=== PATIENT | female | born 1990 | race Caucasian/White ===

== ENCOUNTER 2017-05-04 15:02 | Emergency (ER) | payer OTHER ==
[2017-05-04] MEDS ORDERED: Acetaminophen 500 MG TAB ONE (15:24)
--- NOTE | 2017-05-04 16:07 | RAD ---
FRONTAL RADIOGRAPH CHEST PORTABLE UPRIGHT: Date: 05-04-17 History: Dizziness, cough, headache, fever. FINDINGS: Heart and mediastinal contours are unremarkable. No focal consolidation or alveolar edema. IMPRESSION: No acute findings. POS: [facility]
[2017-05-04 16:27] LABS: Hematocrit 42.4 % (36.0-47.0); Mean Platelet Volume 7.1 fL (7.4-10.4); Red Blood Cell (RBC) Count 4.82 mill/uL (4.20-5.40); White Blood Cell (WBC) Count 20.3 thou/uL (4.8-10.8)
[2017-05-04 16:41] LABS: ALT (SGPT) 12 U/L (8-55); AST (SGOT) 11 U/L (5-34); Alkaline Phosphatase 63 U/L (40-150); Anion Gap 17 mmol/L (10-20); BUN (Urea Nitrogen) 12 mg/dL (7.0-18.7); Bilirubin, Total 1.2 mg/dL (0.2-1.2); Calc. Creatinine Clearance 0 mL/min (70-130); Calcium 9.2 mg/dL (7.8-10.44); Carbon Dioxide 17 mmol/L (22-29); Chloride 102 mmol/L (98-107); Estimated GFR-MDRD 65; Globulin 3.6 g/dL (2.4-3.5); Protein, Total 7.4 g/dL (6.0-8.3)
[2017-05-04 16:48] LABS: Band 12 % (5-11); Neutrophil 75 % (42-75)
[2017-05-04 17:12] LABS: Bilirubin Negative (Negative); Blood, Urine Moderate (Negative); Glucose, Urine (Dipstick) Negative (Negative); Ketone, Urine Negative (Negative); Nitrite Positive (Negative); Protein, Urine (Dipstick) Negative (Neg-Trace); Urobilinogen 0.2 mg/dL (0.2-1.0)
[2017-05-04 18:13] LABS: Lactic Acid - Sepsis 1.4 mmol/L (0.5-2.2)
== END 2017-05-04 18:16 | disposition home or self-care (01) ==
LOC: ERS 15:02
DX: N39.0 Urinary tract infection, site not specified (principal); R51 Headache; R42 Dizziness and giddiness; R05 Cough
CPT/HCPCS: 36415; 51701; 71010; 80053; 81003; 81015; 81025; 83605; 85025; 87077; 87086; 87186; 96361; 96374; J0696

== ENCOUNTER 2017-05-17 12:48 | Emergency (ER) | payer OTHER ==
[2017-05-17] MEDS ORDERED: Acetaminophen 500 MG TAB ONE (13:46)
[2017-05-17 13:54] LABS: Bilirubin Small (Negative); Blood, Urine Small (Negative); Glucose, Urine (Dipstick) Negative (Negative); Ketone, Urine Trace mg/dL (Negative); Nitrite Positive (Negative); Protein, Urine (Dipstick) 300 mg/dL (Neg-Trace)
[2017-05-17 13:58] LABS: Bacteria/HPF 4+ HPF (None Seen); Hyaline Casts/LPF 4-6 HYALINE CAST LPF (0-3 Hyaline); Squamous Epithelial 0-3 HPF (0-3)
[2017-05-17 14:05] LABS: Yeast-All Forms None Seen HPF (None Seen)
[2017-05-17 14:07] LABS: #Lymphocytes 1.5 thou/uL (1.20-3.40); #Monocytes 1.2 thou/uL (0.11-0.59); #Neutrophils 13.3 thou/uL (1.40-6.50); %Basophils 0.2 % (0.0-1.0); %Eosinophils 0.3 % (0.0-10.0); %Lymphocytes 9.4 % (21.0-51.0); %Monocytes 7.5 % (0.0-10.0); Hematocrit 40.1 % (36.0-47.0); Mean Platelet Volume 6.6 fL (7.4-10.4); White Blood Cell (WBC) Count 16.1 thou/uL (4.8-10.8)
[2017-05-17 14:24] LABS: Lactic Acid - Sepsis 1.2 mmol/L (0.5-2.2)
[2017-05-17 14:27] LABS: ALT (SGPT) 16 U/L (8-55); AST (SGOT) 13 U/L (5-34); Alkaline Phosphatase 84 U/L (40-150); Anion Gap 16 mmol/L (10-20); BUN (Urea Nitrogen) 19 mg/dL (7.0-18.7); Bilirubin, Total 0.9 mg/dL (0.2-1.2); Calc. Creatinine Clearance 0 mL/min (70-130); Calcium 10.6 mg/dL (7.8-10.44); Carbon Dioxide 24 mmol/L (22-29); Chloride 100 mmol/L (98-107); Estimated GFR-MDRD 62; Globulin 4.6 g/dL (2.4-3.5); Protein, Total 8.5 g/dL (6.0-8.3)
[2017-05-17] MEDS ORDERED: cefTRIAXone\\ROCEPHIN 2 GM in Sodium Chloride 0.9% 100 ML IVPB SCH (14:30)
[2017-05-17] MEDS ORDERED: Morphine 4 MG/ML VIAL ONE (15:15)
[2017-05-17] MEDS ORDERED: Ketorolac Tromethamine 30 MG/ML VIAL ONE (16:08)
== END 2017-05-17 17:38 | disposition home or self-care (01) ==
LOC: ERS 12:48
DX: N12 Tubulo-interstitial nephritis, not specified as acute or chronic (principal); Z79.899 Other long term (current) drug therapy
CPT/HCPCS: 36415; 80053; 81003; 81015; 81025; 83605; 85025; 87040; 87077; 87086; 87186; 96361; 96365; 96375; J0696; J1885; J2270; J7050

== ENCOUNTER 2017-08-08 14:26 | Observation (INO) | payer OTHER, SELFPAY ==
[~2017-08-08 14:26] MED LIST: Dexamethasone 20 MG/5 ML VIAL ONE; Lidocaine 1% PF 5 ML VIAL ONE; Ondansetron HCl/PF 4 MG/2 ML Vial ONE; Propofol 200 MG/20 ML VIAL ONE
[2017-08-08] MEDS ORDERED: Ibuprofen 800 MG TAB ONE (15:01)
[2017-08-08 15:11] LABS: Bilirubin Small (Negative); Blood, Urine Moderate (Negative); Clarity CLOUDY (Clear); Glucose, Urine (Dipstick) Negative (Negative); Leukocyte Moderate (Negative); Nitrite Negative (Negative); Protein, Urine (Dipstick) 100 mg/dL (Neg-Trace)
[2017-08-08 15:13] LABS: Bacteria/HPF 1+ HPF (None Seen); Hyaline Casts/LPF 7-10 HYALINE CAST LPF (0-3 Hyaline); Pathc Cast-AUWi Flag 0.54 (0-2.49); Squamous Epithelial 0-3 HPF (0-3)
[2017-08-08 15:53] LABS: #Basophils 0.1 thou/uL (0.0-0.2); #Lymphocytes 1.9 thou/uL (1.20-3.40); #Monocytes 0.8 thou/uL (0.11-0.59); #Neutrophils 9.1 thou/uL (1.40-6.50); %Basophils 0.6 % (0.0-1.0); %Eosinophils 0.2 % (0.0-10.0); %Lymphocytes 16.1 % (21.0-51.0); %Monocytes 6.8 % (0.0-10.0); %Neutrophils 76.3 % (42.0-75.0); Hemoglobin 14.5 g/dL (12.0-16.0); Mean Corpuscular HGB CONC 32.1 g/dL (32.0-36.0); Mean Corpuscular Hemoglobin 28.2 pg (27.0-31.0); Mean Corpuscular Volume 87.8 fl (81.0-99.0); Mean Platelet Volume 6.6 fL (7.4-10.4); Platelet Count 412 thou/uL (130-400); RBC Distribution Width 12.2 % (11.5-14.5); Red Blood Cell (RBC) Count 5.14 mill/uL (4.20-5.40)
[2017-08-08 16:04] LABS: BHCG - Serum Negative (NEGATIVE); Pregs Control Background? CLEAR/WHITE (CLR/WHITE); Pregs Control Bar Appear? YES (CONTROL BAR)
--- NOTE | 2017-08-08 16:06 | RAD ---
CHEST ONE VIEW: 08/08/17 HISTORY: Fever. COMPARISON: 05/04/17. FINDINGS: The cardiac silhouette is magnified by projection. Pulmonary vasculature is unremarkable. Mediastinum is midline. There is no lobar consolidation or evidence of pneumothorax. IMPRESSION: No active cardiopulmonary abnormalities are demonstrated. POS: [facility]
[2017-08-08 16:18] LABS: ALT (SGPT) 12 U/L (8-55); AST (SGOT) 12 U/L (5-34); Alkaline Phosphatase 71 U/L (40-150); Anion Gap 18 mmol/L (10-20); BUN (Urea Nitrogen) 9 mg/dL (7.0-18.7); Bilirubin, Total 0.6 mg/dL (0.2-1.2); Calc. Creatinine Clearance 0 mL/min (70-130); Calcium 10.1 mg/dL (7.8-10.44); Carbon Dioxide 19 mmol/L (22-29); Chloride 100 mmol/L (98-107); Estimated GFR-MDRD 87; Globulin 5.2 g/dL (2.4-3.5); Glucose 108 mg/dL (70-105); Potassium 3.7 mmol/L (3.5-5.1); Protein, Total 9.2 g/dL (6.0-8.3); Sodium 133 mmol/L (136-145)
--- NOTE | 2017-08-08 16:55 | CT ---
CT OF ABDOMEN NONCONTRAST 08/08/17 COMPARISON: 11/11/13 CLINICAL HISTORY: Back pain, gradual onset. FINDINGS: There is nonobstructive right nephrolithiasis. There is a urinary tract calculus at the proximal left ureter measuring 7 mm with mild left obstructive uropathy. The urinary bladder is decompressed. Ther e are hypodensities at each adnexa likely related to physiologic cyst formation. The solid abdominal organs, bowel, lymph nodes, vasculature, are limited in assessment by noncontrast technique. There is evidence of prior cholecystectomy. There is mild low attenuation of the hepatic parenchyma suggestiv e of fatty infiltration. Correlate with liver function enzymes. No consolidation or effusion at the imaged lung bases. Osseous structures reveal no acute findings. Postsurgical change at the lumbosacral region present. Comparing to 11/11/13 exam, prior right sided nephrostomy catheter has been removed. IMPRESSION: 1. Mildly obstructing proximal left ureteral calculus, measuring approximately 7 mm. Urology con sultation is warranted, given size of the calculus. 2. Nonobstructive right nephrolithiasis. POS: [facility]
[2017-08-08] MEDS ORDERED: Iothalamate Meglumine 60% 50 ML VIAL FS ONE (17:23)
[2017-08-08] MEDS ORDERED: HYDROmorphone 0.5 MG/0.5 ML SYRINGE ONE (17:29)
[2017-08-08] MEDS ORDERED: Fentanyl 100 MCG/2 ML VIAL ONE (17:29)
[2017-08-08] MEDS ORDERED: Promethazine HCl 25 MG/ML VIAL IM PRN ×2 (18:53→18:57)
[2017-08-08] MEDS ORDERED: Ondansetron HCl/PF 4 MG/2 ML Vial IVP PRN ×2 (18:53→18:57)
[2017-08-08] MEDS ORDERED: Promethazine HCl 25 MG/ML VIAL SLOW IVP PRN ×2 (18:53→18:57)
--- NOTE | 2017-08-08 18:54 | RAD ---
IVP RETROGRADE TWO FLUOROSCOPIC IMAGES 08/08/17 INDICATION: Obstructive uropathy, urolithiasis. FINDINGS: There is a left ureteral stent partially visualized which does traverse the patient's diagnosed proxi mal left ureteral calculus. IMPRESSION: Calcific density with partially imaged left ureteral catheter. POS: [facility]
[2017-08-08] MEDS ORDERED: HYDROmorphone 2 MG/ML VIAL SLOW IVP PRN (18:57)
--- NOTE | 2017-08-08 19:21 | OP ---
DATE: 08/08/2017 PREOPERATIVE DIAGNOSIS: Left ureteral stone and fever, urinary tract infection. POSTOPERATIVE DIAGNOSES: Left ureteral stone and fever, urinary tract infection. PROCEDURE: Cystoscopy and left double-J stent placement. SURGEON: Raheem Friedman MD ANESTHESIA: General. INDICATIONS: Ms. Bell is a 27-year-old female with a prior history of stone disease requiring a left-sided ureteroscopy, right-sided percutaneous nephrolithotripsy [place] [address] Tristan. She presents with a several day history of low grade fever and left-sided flank pain. CT imaging demonstrates a 7 mm left upper ureter stone. Urinalysis was consistent with urinary tract infection. She is being brought to the operating room for cystoscopy and left double-J stent placement. DETAILS OF PROCEDURE: The patient was given general anesthesia and IV antibiotics. She was sterilely prepped and draped in the lithotomy position. The cystoscope was passed into the bladder and bladder examined in its entirety. There were no mucosal abnormalities. Left ureteral orifice was intubated with a floppy tip guidewire, which was passed cephalad under fluoroscopic control. A 6 x 24 double-J stent was passed over the guidewire and coiled in the left renal pelvis into the bladder as determined fluoroscopically and cystoscopically. The stone was visible on plain field imaging and she would be a candidate for subsequent ESWL or ureteroscopy. COMPLICATIONS: None. ESTIMATED BLOOD LOSS: Minimal. She will be admitted for observation overnight because of risk of sepsis. [facility]PITALFerdinand
[2017-08-08] MEDS ORDERED: Ondansetron ODT 4 MG TAB PO PRN (20:13)
[2017-08-08] MEDS ORDERED: cefTRIAXone\\ROCEPHIN 1 GM in Sodium Chloride 0.9% 100 ML IVPB SCH (20:13)
[2017-08-08] MEDS ORDERED: Acetaminophen 325 MG TAB PO PRN (20:13)
[2017-08-08] MEDS ORDERED: Guaifenesin DM 100-10/5 ML UDCUP PO PRN (20:13)
[2017-08-08] MEDS: HYDROcodone/Acetaminophen 10/325 mg Tablet PO PRN (20:59)
[2017-08-08] MEDS: Famotidine 20 MG TAB PO SCH (20:59)
[2017-08-08] MEDS: Sodium Chloride 0.9% 1,000 ML IV SCH (22:22)
--- NOTE | 2017-08-09 00:18 | CON ---
DATE OF CONSULTATION: 08/08/2017 REASON FOR CONSULTATION: Left-sided flank pain and urinary tract infection. HISTORY OF PRESENT ILLNESS: Ms. Bell is a 27-year-old female, who presents with a 4-day history of low-grade fever. She did not improve and she started to develop progressively worsening left-sided flank pain. She was evaluated in the emergency room and found to have a 7 mm left upper ureteral stone. She also has approximately a 7 mm stone in the right kidney that is nonobstructive. She has a prior history of stone disease having undergone a left ureteroscopy with stone extraction with right percutaneous nephrolithotripsy [place] [address] Tristan PAST MEDICAL HISTORY: Kidney stones. PAST SURGICAL HISTORY: Back surgery x2, cholecystectomy, , left ureteroscopy and stone extraction, right percutaneous nephrolithotripsy, both in 2010. FAMILY HISTORY: Significant for lung cancer and skin cancer in her grandparents. SOCIAL HISTORY: She is a nonsmoker, denies excessive alcohol use. REVIEW OF SYSTEMS: Respiratory: No shortness of breath. Cardiovascular: No chest pain or palpitations. Gastrointestinal: Denies chronic constipation or diarrhea. PHYSICAL EXAMINATION: GENERAL: She is awake and alert. She is in no distress at this time. VITAL SIGNS: Temperature 100.1, pulse 92, respiratory rate 20, blood pressure 138/82. HEENT: Normocephalic, atraumatic. NECK: Supple, without masses. CHEST: Clear to auscultation. CARDIOVASCULAR: Regular rate and rhythm. No murmurs auscultated. ABDOMEN: Soft, nontender, no palpable masses. No peritoneal signs. NEUROLOGIC: Cranial nerves II through XII grossly intact. IMPRESSION: Ms. Bell is a 27-year-old female with a 7 mm left upper ureter stone with some proximal hydronephrosis. In addition, she has a right-sided kidney stone that is nonobstructive. From a laboratory standpoint, she has a white blood cell count of 12,000 with normal hemoglobin and hematocrit. Urine testing reveals white blood cells and red blood cells along with 1+ bacteria noted. Because of presumed infection and obstruction, I have recommended a cystoscopy and left double-J stent placement. The procedure, potential limitations, alternatives, and complications have been discussed with her. She does wish to proceed. PLAN: Cystoscopy, left double-J stent placement. [facility]
[2017-08-09 04:02] VITALS: BMI 44.6
[2017-08-09] MEDS: HYDROcodone/Acetaminophen 10/325 mg Tablet PO PRN ×2 (08:03→12:27)
[2017-08-09] MEDS: Famotidine 20 MG TAB PO SCH (08:04)
[2017-08-09] MEDS: Sodium Chloride 0.9% 1,000 ML IV SCH (08:10)
[2017-08-09 12:27] VITALS: BP 104/71; TEMP 97.7
--- NOTE | 2017-08-09 14:25 | DIS ---
DATE OF ADMISSION: 08/08/2017 DATE OF DISCHARGE: 08/09/2017 ADMISSION DIAGNOSES: Urinary tract infection, left ureteral stone. DISCHARGE DIAGNOSES: Urinary tract infection, left ureteral stone. HISTORY: Ms. Bell is a 27-year-old female who presented to the hospital with a subjective fever, a bnormal urinalysis and in the emergency room was noted to have a 7 mm left ureteral stone in the left upper ureter. HOSPITAL COURSE: She was admitted on 08/08/2017 and taken to the operating room and a left double-J stent was placed. She remained afebrile postoperatively. Urine culture preliminary is for E. coli. She was hemodynamically stable throughout her hospital course. DISCHARGE MEDICATIONS: Bactrim and Fyffe. FOLLOW UP: We will arrange for outpatient therapy for stone treatment by either ESWL or ureteroscopy in the near future.
[2017-08-09] MEDS ORDERED: cefTRIAXone\\ROCEPHIN 1 GM, Syringe 0.4 ML in Sterile Water 9.6 ML SLOW IVP SCH (17:00)
== END 2017-08-09 15:05 | disposition home or self-care (01) ==
LOC: ERS 14:26 → SURG B 17:41 → SDC 17:45 → SURG B 18:46
PROVIDERS: ADMIT Urology; ATTEND Urology
PROC: 0T778DZ Dilation of Left Ureter with Intraluminal Device, Via Natural or Artificial Opening Endoscopic (ICD-10-PCS; principal; 2017-08-09)
DX: N20.1 Calculus of ureter (principal); N39.0 Urinary tract infection, site not specified; Z79.2 Long term (current) use of antibiotics; Z98.891 History of uterine scar from previous surgery; Z90.49 Acquired absence of other specified parts of digestive tract; Z98.890 Other specified postprocedural states; Z87.442 Personal history of urinary calculi
CPT/HCPCS: 36415; 71045; 74018; 74176; 80053; 81003; 81015; 83605; 84703; 85025; 87040; 87077; 87086; 87186; 94760; 96361; 96374; A4216; C1758; C1769; G0378; J0696; J1100; J1170; J2001; J2405; J2704; J3010; Q9961

== ENCOUNTER 2017-08-24 07:30 | Day surgery (SDC) | payer SELFPAY ==
[2017-08-21 12:20] VITALS: BMI 42.5
[2017-08-24] MEDS ORDERED: Levofloxacin 500 mg/D5W 100 ml Premix Bag ONE (08:39)
[2017-08-24 08:58] LABS: BHCG - Serum Negative (NEGATIVE); Pregs Control Background? CLEAR/WHITE (CLR/WHITE); Pregs Control Bar Appear? YES (CONTROL BAR)
[2017-08-24] MEDS ORDERED: Midazolam HCl 2 mg/2 ml Vial ONE (09:35)
--- NOTE | 2017-08-24 11:12 | OP ---
DATE OF PROCEDURE: 08/24/2017 PREOPERATIVE DIAGNOSIS: Left ureteral stone. POSTOPERATIVE DIAGNOSIS: Left ureteral stone. PROCEDURE: ESWL, cystoscopy, stent removal. SURGEON: Dr. Raheem Friedman ANESTHESIA: General. INDICATIONS: Ms. Bell is a 27-year-old female who is status post left ureteral stent placement and antibiotic therapy for an 8 mm left upper ureter stone with bacterial urinary tract infection. She presents now for definitive management of the stone. She has elected to proceed with ESWL. DETAILS OF PROCEDURE: The patient was given general anesthesia and IV antibiotics. She was placed i n the supine position on the Dornier lithotripsy table. She was carefully positioned and the stone w as easily visible. The stone could be easily visualized in both the fluoroscopic planes. She receiv ed a total of 2500 shocks to the left ureteral stone and the stone looked completely fragmented. A m aximum power setting of 5. She was then sterilely prepped and the cystoscope was passed in the bladd er. Indwelling left ureteral stent was grasped and removed without difficulty. The patient tolerate d the procedure well. She was transferred from the operating room to recovery room in stable conditi on. COMPLICATIONS: None. ESTIMATED BLOOD LOSS: Minimal.
[2017-08-24] MEDS ORDERED: Lidocaine 1% PF 5 ML VIAL ONE (17:15)
[2017-08-24] MEDS ORDERED: Propofol 200 MG/20 ML VIAL ONE (17:15)
== END 2017-08-24 12:15 | disposition home or self-care (01) ==
LOC: SDC 07:30
PROVIDERS: ATTEND Urology
PROC: 0TF7XZZ Fragmentation in Left Ureter, External Approach (ICD-10-PCS; principal; 2017-08-24)
PROC: 0TP98DZ Removal of Intraluminal Device from Ureter, Via Natural or Artificial Opening Endoscopic (ICD-10-PCS; principal; 2017-08-24)
DX: N20.1 Calculus of ureter (principal); N39.0 Urinary tract infection, site not specified; B96.89 Other specified bacterial agents as the cause of diseases classified elsewhere; Z98.890 Other specified postprocedural states
CPT/HCPCS: 36415; 84703; J1956; J2001; J2175; J2250; J2704

== ENCOUNTER 2019-01-11 15:22 | Emergency (ER) | payer OTHER, SELFPAY ==
[2019-01-11 16:29] LABS: #Eosinphils 0.1 thou/uL (0.0-0.7); #Lymphocytes 2.3 thou/uL (1.20-3.40); #Monocytes 0.4 thou/uL (0.11-0.59); #Neutrophils 4.8 thou/uL (1.40-6.50); %Basophils 0.3 % (0.0-1.0); %Eosinophils 1.8 % (0.0-10.0); %Monocytes 4.7 % (0.0-10.0); %Neutrophils 63.2 % (42.0-75.0); Hemoglobin 13.2 g/dL (12.0-16.0); Mean Corpuscular HGB CONC 32.2 g/dL (32.0-36.0); Mean Corpuscular Hemoglobin 27.2 pg (27.0-31.0); Mean Corpuscular Volume 84.6 fL (78.0-98.0); Platelet Count 353 thou/uL (130-400); RBC Distribution Width 11.7 % (11.5-14.5); Red Blood Cell (RBC) Count 4.86 mill/uL (4.20-5.40); White Blood Cell (WBC) Count 7.7 thou/uL (4.8-10.8)
[2019-01-11 16:35] LABS: BHCG - Serum Negative (NEGATIVE); Pregs Control Background? CLEAR/WHITE (CLR/WHITE); Pregs Control Bar Appear? YES (CONTROL BAR)
[2019-01-11 16:50] LABS: ALT (SGPT) 10 U/L (8-55); AST (SGOT) 11 U/L (5-34); Albumin 4.1 g/dL (3.5-5.0); Alkaline Phosphatase 71 U/L (40-150); Anion Gap 13 mmol/L (10-20); BUN (Urea Nitrogen) 8 mg/dL (7.0-18.7); Bilirubin, Total 0.6 mg/dL (0.2-1.2); Calc. Creatinine Clearance 0 mL/min (70-130); Calcium 9.9 mg/dL (7.8-10.44); Carbon Dioxide 23 mmol/L (22-29); Chloride 104 mmol/L (98-107); Estimated GFR-MDRD 89; Globulin 3.5 g/dL (2.4-3.5); Glucose 95 mg/dL (70-105); Protein, Total 7.6 g/dL (6.0-8.3); Sodium 136 mmol/L (136-145)
--- NOTE | 2019-01-11 16:51 | RAD ---
XR Chest 1 View Portable History: Chest pain. Dizziness. Comparison: Radiograph July 2017 Findings: Lungs are clear. No pneumothorax. No effusion. No acute osseous abnormality. Cardiac silhouette and mediastinal contours are similar. Impression: No acute intrathoracic abnormality.
[2019-01-11 17:30] LABS: Bilirubin Negative (Negative); Blood, Urine Negative (Negative); Clarity Clear (Clear); Glucose, Urine (Dipstick) Normal (Negative); Leukocyte Negative Leu/uL (Negative); Nitrite 1+ (Negative); Protein, Urine (Dipstick) 20 mg/dL (Neg-Trace); Squamous Epithelial 0-3 HPF (0-3); Urobilinogen Normal mg/dL (Less than 2); WBC/HPF 0-3 HPF (0-3)
[2019-01-11 17:35] LABS: Bacteria/HPF 1+ HPF (None Seen)
== END 2019-01-11 18:05 | disposition home or self-care (01) ==
LOC: ERS 15:22
DX: R42 Dizziness and giddiness (principal); R07.89 Other chest pain; M54.5 Low back pain; Z79.899 Other long term (current) drug therapy
CPT/HCPCS: 36415; 71045; 80053; 81003; 81015; 84703; 85025; 93005

== ENCOUNTER 2019-03-02 16:11 | Emergency (ER) | payer SELFPAY ==
[2019-03-02] MEDS ORDERED: Fentanyl 100 MCG/2 ML VIAL ONE (16:44)
[2019-03-02] MEDS ORDERED: Ketorolac Tromethamine 30 MG/ML VIAL ONE (16:44)
[2019-03-02] MEDS ORDERED: Ondansetron PF 4 MG/2 ML Vial ONE ×2 (16:44→17:49)
[2019-03-02 16:54] LABS: #Basophils 0.1 thou/uL (0.0-0.2); #Eosinphils 0.2 thou/uL (0.0-0.7); #Lymphocytes 2.7 thou/uL (1.20-3.40); #Monocytes 0.4 thou/uL (0.11-0.59); #Neutrophils 4.9 thou/uL (1.40-6.50); %Basophils 0.7 % (0.0-1.0); %Eosinophils 2.2 % (0.0-10.0); %Lymphocytes 32.6 % (21.0-51.0); %Monocytes 5.1 % (0.0-10.0); %Neutrophils 59.4 % (42.0-75.0); Hemoglobin 14.1 g/dL (12.0-16.0); Mean Corpuscular HGB CONC 35.5 g/dL (32.0-36.0); Mean Corpuscular Hemoglobin 29.6 pg (27.0-31.0); Mean Corpuscular Volume 83.6 fL (78.0-98.0); Mean Platelet Volume 7.3 fL (7.4-10.4); Platelet Count 344 thou/uL (130-400); RBC Distribution Width 11.6 % (11.5-14.5); Red Blood Cell (RBC) Count 4.76 mill/uL (4.20-5.40); White Blood Cell (WBC) Count 8.2 thou/uL (4.8-10.8)
[2019-03-02 17:00] LABS: BHCG - Serum Negative (NEGATIVE); Pregs Control Background? CLEAR/WHITE (CLR/WHITE); Pregs Control Bar Appear? YES (CONTROL BAR)
[2019-03-02 17:03] LABS: Bacteria/HPF 1+ HPF (None Seen); Bilirubin Negative (Negative); Blood, Urine Negative (Negative); Clarity Clear (Clear); Glucose, Urine (Dipstick) Normal (Negative); Leukocyte 75 Leu/uL (Negative); Mucous/LPF 1+ LPF (<2+); Nitrite Negative (Negative); Protein, Urine (Dipstick) Negative (Neg-Trace); Urobilinogen Normal mg/dL (Less than 2)
[2019-03-02 17:23] LABS: ALT (SGPT) 22 U/L (8-55); AST (SGOT) 15 U/L (5-34); Albumin 4.1 g/dL (3.5-5.0); Alkaline Phosphatase 87 U/L (40-150); Anion Gap 13 mmol/L (10-20); BUN (Urea Nitrogen) 8 mg/dL (7.0-18.7); Bilirubin, Total 0.4 mg/dL (0.2-1.2); Calc. Creatinine Clearance 0 mL/min (70-130); Calcium 9.6 mg/dL (7.8-10.44); Carbon Dioxide 25 mmol/L (22-29); Chloride 104 mmol/L (98-107); Estimated GFR-MDRD 86; Globulin 3.1 g/dL (2.4-3.5); Glucose 120 mg/dL (70-105); Lipase 26 U/L (8-78); Potassium 3.7 mmol/L (3.5-5.1); Protein, Total 7.2 g/dL (6.0-8.3); Sodium 138 mmol/L (136-145)
--- NOTE | 2019-03-02 17:53 | CT ---
CT ABDOMEN NONCONTRAST CT PELVIS NONCONTRAST: (Urolithiasis protocol) DATE: 03/02/2019 HISTORY: 28-year-old female with nephrolithiasis presents with bilateral flank pain. COMPARISON: 08/08/2017 TECHNIQUE: IV injection of iodinated contrast media: None Oral contrast media: None FINDINGS: Other than for urolithiasis, the lack of IV and oral contrast limits the evaluation. Again noted is the 0.7 x 0.8 x 0.5 cm calculus at a right renal lower pole calyx. The previously demo nstrated calculus in the left ureter is no longer present. There is currently no calculus in the left kidney, bilateral ureters, or urinary bladder. There is currently no hydronephrosis, unlike the previous CT. No perirenal edema. Within the limitations of a noncontrast scan, no significant abnormality identified involving left kidney, abdominal aorta, adrenals, pancreas, liver, or spleen. Appendix not identified. No small bowel dilation. No signs of colonic diverticulitis. Post cystectomy clips. Lung bases are clear. No ascites or pneumoperitoneum. Pedicle screws and laminectom y defect at lumbar spine. There is an approximately 3 x 1.2 x 1 cm fatty mass within the spinal canal at L2 level. This was present previously. IMPRESSION: 1. Nephrolithiasis consisting of a 8 mm calculus in the right kidney. 2. No obstructive uropathy. 3. Intraspinal lipoma, presumably intradural. 4. Status post laminectomy and posterior lumbar fusion hardware. 5. Status post cholecystectomy.
== END 2019-03-02 18:40 | disposition home or self-care (01) ==
LOC: ERS 16:11
DX: N39.0 Urinary tract infection, site not specified (principal)
CPT/HCPCS: 36415; 74176; 80053; 81003; 81015; 83690; 84703; 85025; 96361; 96374; 96375; 96376; J1885; J2405; J3010

== ENCOUNTER 2019-04-11 10:32 | Outpatient (CLI) | payer MEDICAID ==
--- NOTE | 2019-04-11 15:35 | ULT ---
LIMITED RIGHT BREAST ULTRASOUND: 04/11/2019 PROVIDED CLINICAL HISTORY: Right breast palpable abnormality. FINDINGS: Limited sonographic interrogation is performed of the right breast from the 3 to 6 o'clock positions. The sonographic appearance of the breast parenchyma in this region is normal. IMPRESSION: No sonographic correlate is evident in the region of palpable concern. Negative imaging findings shou ld not preclude further evaluation of the clinically suspicious area. The patient is referred back to her clinician. POS: [facility]
== END 2019-04-11 10:33 | disposition home or self-care (01) ==
LOC: BICULT 10:32 → EDSTATUS 11:00
PROVIDERS: ATTEND Family Medicine
DX: N63.10 Unspecified lump in the right breast, unspecified quadrant (principal)

== ENCOUNTER 2021-05-13 12:43 | Emergency (ER) | payer MEDICAID, OTHER ==
[2021-05-13 13:30] LABS: #Eosinphils 0.1 thou/uL (0.0-0.7); #Lymphocytes 2.4 thou/uL (1.20-3.40); #Monocytes 0.4 thou/uL (0.11-0.59); #Neutrophils 5.9 thou/uL (1.40-6.50); %Basophils 0.2 % (0.0-1.0); %Eosinophils 0.7 % (0.0-10.0); %Lymphocytes 27.3 % (21.0-51.0); %Monocytes 4.1 % (0.0-10.0); %Neutrophils 67.6 % (42.0-75.0); Hemoglobin 14.9 g/dL (12.0-16.0); Mean Corpuscular HGB CONC 33.5 g/dL (32.0-36.0); Mean Corpuscular Hemoglobin 29.3 pg (27.0-31.0); Mean Corpuscular Volume 87.5 fL (78.0-98.0); Mean Platelet Volume 7.3 fL (7.4-10.4); Platelet Count 373 thou/uL (130-400); RBC Distribution Width 11.7 % (11.5-14.5); Red Blood Cell (RBC) Count 5.07 mill/uL (4.20-5.40); White Blood Cell (WBC) Count 8.7 thou/uL (4.8-10.8)
[2021-05-13 13:38] LABS: BHCG - Serum Negative (NEGATIVE); Pregs Control Background? CLEAR/WHITE (CLR/WHITE); Pregs Control Bar Appear? YES (CONTROL BAR)
[2021-05-13 13:51] LABS: ALT (SGPT) 22 U/L (8-55); AST (SGOT) 16 U/L (5-34); Albumin 4.3 g/dL (3.5-5.0); Alkaline Phosphatase 61 U/L (40-110); Anion Gap 13 mmol/L (10-20); BUN (Urea Nitrogen) 7 mg/dL (7.0-18.7); Bilirubin, Total 0.5 mg/dL (0.2-1.2); Calc. Creatinine Clearance 0 mL/min (70-130); Calcium 10.2 mg/dL (7.8-10.44); Carbon Dioxide 24 mmol/L (22-29); Chloride 105 mmol/L (98-107); Globulin 3.6 g/dL (2.4-3.5); Glucose 108 mg/dL (70-105); Potassium 4.4 mmol/L (3.5-5.1); Protein, Total 7.9 g/dL (6.0-8.3); Sodium 138 mmol/L (136-145)
[2021-05-13 15:08] LABS: Bacteria/HPF 4+ HPF (None Seen); Bilirubin Negative (Negative); Blood, Urine 2+ (Negative); Clarity Turbid (Clear); Glucose, Urine (Dipstick) Normal (Negative); Ketone, Urine Trace mg/dL (Negative); Leukocyte 500 Leu/uL (Negative); Nitrite 2+ (Negative); Protein, Urine (Dipstick) 50 mg/dL (Neg-Trace); Specific Gravity, Urine 1.027 (1.002-1.036); Squamous Epithelial 0-3 HPF (0-3); WBC/HPF Greater than 50 HPF (0-3)
== END 2021-05-13 15:39 | disposition home or self-care (01) ==
LOC: ERS 12:43
DX: N10 Acute pyelonephritis (principal)
CPT/HCPCS: 36415; 74176; 80053; 81003; 81015; 84703; 85025; 86850; 86900; 86901; 87086; 94760

== ENCOUNTER 2021-05-20 10:09 | Emergency (ER) | payer OTHER ==
[2021-05-20 11:08] LABS: #Basophils 0.1 thou/uL (0.0-0.2); #Eosinphils 0.1 thou/uL (0.0-0.7); #Monocytes 0.3 thou/uL (0.11-0.59); %Basophils 1.1 % (0.0-1.0); %Eosinophils 1.9 % (0.0-10.0); %Monocytes 4.1 % (0.0-10.0); %Neutrophils 61.9 % (42.0-75.0); Hemoglobin 14.8 g/dL (12.0-16.0); Mean Corpuscular HGB CONC 33.1 g/dL (32.0-36.0); Mean Corpuscular Hemoglobin 29.2 pg (27.0-31.0); Mean Corpuscular Volume 88.1 fL (78.0-98.0); Mean Platelet Volume 7.6 fL (7.4-10.4); Platelet Count 354 thou/uL (130-400); RBC Distribution Width 11.5 % (11.5-14.5); Red Blood Cell (RBC) Count 5.08 mill/uL (4.20-5.40); White Blood Cell (WBC) Count 6.5 thou/uL (4.8-10.8)
[2021-05-20 11:11] LABS: BHCG - Serum Negative (NEGATIVE); Pregs Control Background? CLEAR/WHITE (CLR/WHITE); Pregs Control Bar Appear? YES (CONTROL BAR)
[2021-05-20 11:23] LABS: Bilirubin Negative (Negative); Blood, Urine Negative (Negative); Clarity Clear (Clear); Glucose, Urine (Dipstick) Normal (Negative); Ketone, Urine Negative (Negative); Leukocyte Negative Leu/uL (Negative); Nitrite Negative (Negative); Protein, Urine (Dipstick) Negative (Neg-Trace); Specific Gravity, Urine 1.002 (1.002-1.036); Urobilinogen Normal mg/dL (Less than 2)
[2021-05-20 11:33] LABS: ALT (SGPT) 42 U/L (8-55); AST (SGOT) 30 U/L (5-34); Albumin 4.2 g/dL (3.5-5.0); Alkaline Phosphatase 68 U/L (40-110); Anion Gap 16 mmol/L (10-20); BUN (Urea Nitrogen) 10 mg/dL (7.0-18.7); Bilirubin, Total 0.4 mg/dL (0.2-1.2); Calc. Creatinine Clearance 0 mL/min (70-130); Calcium 9.7 mg/dL (7.8-10.44); Carbon Dioxide 19 mmol/L (22-29); Chloride 106 mmol/L (98-107); Globulin 3.5 g/dL (2.4-3.5); Glucose 169 mg/dL (70-105); Potassium 3.9 mmol/L (3.5-5.1); Protein, Total 7.7 g/dL (6.0-8.3); Sodium 137 mmol/L (136-145)
[2021-05-23 02:04] LABS: Chlamydia by PCR Not Detected (NotDetected); GC by PCR Not Detected (NotDetected)
== END 2021-05-20 14:11 | disposition home or self-care (01) ==
LOC: ERS 10:09
DX: R10.31 Right lower quadrant pain (principal); R10.32 Left lower quadrant pain
CPT/HCPCS: 36415; 80053; 81003; 84703; 85025; 87480; 87491; 87510; 87591; 87660; 99284

== ENCOUNTER 2021-06-03 15:48 | Outpatient (CLI) | payer OTHER | END 2021-06-03 15:49 | disposition home or self-care (01) | LOC: BICRAD 15:48 | PROVIDERS: ATTEND Family Medicine | DX: M54.50 Low back pain, unspecified (principal); N20.0 Calculus of kidney; Z98.890 Other specified postprocedural states | CPT/HCPCS: 72100 ==

== ENCOUNTER 2021-06-12 10:07 | Outpatient (CLI) | payer OTHER | END 2021-06-12 10:08 | disposition home or self-care (01) | LOC: ULT 10:07 | PROVIDERS: ATTEND Family Medicine | DX: N93.9 Abnormal uterine and vaginal bleeding, unspecified (principal) | CPT/HCPCS: 76856 ==

== ENCOUNTER 2021-11-22 14:53 | Outpatient (CLI) | payer OTHER | END 2021-11-22 14:54 | disposition home or self-care (01) | LOC: BICULT 14:53 | PROVIDERS: ATTEND Urology | DX: N20.0 Calculus of kidney (principal) | CPT/HCPCS: 76770 ==